=== PATIENT | female | born 1955 | race African-American/Black ===

== ENCOUNTER → 2017-12-09 | Outpatient (CLI) | payer BC ==
[~2017-12-09] MED LIST: COZAAR 25 MG TA25 M1 PO; FISH OIL 1,001000 M2 PO; KLOR-CON 1010 MEQ PO; MOBIC15 MG PO; VITAMIN D1000 UNI1 PO
== END ==
LOC: M.RAD 16:00
DX: Z12.31 Encounter for screening mammogram for malignant neoplasm of breast (principal); M85.89 Other specified disorders of bone density and structure, multiple sites; E55.9 Vitamin D deficiency, unspecified; Z78.0 Asymptomatic menopausal state

== ENCOUNTER → 2019-02-17 | Outpatient (CLI) | payer BC | LOC: M.MRI 13:03 | DX: M47.812 Spondylosis without myelopathy or radiculopathy, cervical region (principal); M50.90 Cervical disc disorder, unspecified, unspecified cervical region; M25.78 Osteophyte, vertebrae; M48.02 Spinal stenosis, cervical region ==

== ENCOUNTER → 2020-10-14 | Outpatient (CLI) | payer BC | LOC: M.RAD 08:38 | PROVIDERS: ATTEND Family Medicine | DX: Z12.31 Encounter for screening mammogram for malignant neoplasm of breast (principal); M85.88 Other specified disorders of bone density and structure, other site ==